=== PATIENT | female | born 1955 | race American Indian/Alaskan Native ===

== ENCOUNTER 2019-03-27 17:16 | Emergency (ER) | payer OTHER, SELFPAY ==
--- NOTE | 2019-03-27 17:17 | ED_ITS ---
HPI - Chest Pain <Stephanie Cornejo DO - Last Filed: 03/28/19 07:30> General Chief Complaint: Chest Pain Stated Complaint: lightheadness Time Seen by Provider: 03/27/19 17:21 Source: patient and EMS Mode of arrival: EMS Limitations: no limitations History of Present Illness HPI narrative: Patient is a 63-year-old female with history of hypertension presenting with burning sensation in her chest lightheadedness and hypertension. She was working at the [employer] when she felt extremely lightheaded like she might pass out however she did not. Her blood pressure was noted to be elevated at the times she did take her nightly dose of medications about 30 minutes prior to arrival. She has also been complaining of chest discomfort which she describes as a burning sensation on the left side of her chest. He says it has been off and on for about a week without provocation or palliation, however it is worse today. It is nonradiating she denies any shortness of breath. She has no abdominal pain nausea vomiting weakness numbness or tingling in her extremities. MD complaint: chest pain Duration: constant Pain location: left chest Severity: mild Quality: other (Burning) Pain radiation: none Relieving factors: nothing Exacerbating factors: nothing Related Data Allergies Allergy/AdvReac Type Severity Reaction Status Date / Time alcohol Allergy Verified 03/27/19 17:27 Review of Systems <DO Dary Shaw Last Filed: 03/28/19 07:30> Review of Systems ROS Unobtainable: All systems reviewed & are unremarkable except as noted in HPI and below Constitutional Constitutional: Denies chills, Denies fever(s), Denies lethargy and Denies weakness Eyes Eyes: Denies change in vision, Denies eye discharge, Denies irritation and Denies loss of vision ENT Ears, Nose, Mouth, and Throat: Denies change in voice, Denies neck pain and Denies sore throat Cardiovascular Cardiovascular: Reports as per HPI, Reports chest pain, Reports lightheadedness, Denies dyspnea and Denies dyspnea on exertion Respiratory Respiratory: Denies cough, Denies dyspnea, Denies dyspnea on exertion and Denies wheezing Gastrointestinal Gastrointestinal: Denies abdominal pain, Denies change in bowel habits, Denies diarrhea, Denies nausea and Denies vomiting Genitourinary Genitourinary: Denies hematuria, Denies flank pain, Denies urinary incontinence and Denies urinary urgency Musculoskeletal Musculoskeletal: Denies neck pain Integumentary/Breasts Skin/Breast: Denies pruritus, Denies erythema, Denies rash and Denies wounds Neurologic Neurologic: Denies confusion, Denies loss of vision and Denies weakness Psychiatric Psychiatric: Denies anxiety, Denies confusion, Denies depression, Denies homicidal ideation and Denies suicidal ideation Allergic/Immunologic Allergic/Immunologic: Denies wheezing Patient History <Stephanie Cornejo DO - Last Filed: 03/28/19 07:30> Medical History Hypertension (Acute) Social History Smoking Status: Never smoker Substance Use Type: does not use Exam <Stephanie Cornejo DO - Last Filed: 03/28/19 07:30> Initial Vital Signs Initial Vital Signs: Vital Signs Pulse Rate 82 03/27/19 17:18 Respiratory Rate 16 03/27/19 17:18 Blood Pressure 223/95 H 03/27/19 17:18 Pulse Oximetry 100 03/27/19 17:18 GENERAL: Well-appearing, well-nourished and in no acute distress. HEENT: Head atraumatic,EOMI, pupils reactive CARDIOVASCULAR: Regular rate and rhythm without murmurs, rubs or gallops. RESPIRATORY: Breath sounds equal bilaterally, no wheezes rales or rhonchi. ABDOMEN: Soft, nontender. Normoactive bowel sounds all 4 quadrants. No guarding or rebound. EXTREMITIES: Normal range of motion, no clubbing or edema. Neurovascularly intact NEUROLOGICAL: Alert and oriented x4.Normal gait and speech. Cranial nerves II through XII grossly intact. [employer] strength equal bilaterally SKIN: Warm, dry, no laceration, no petechiae, no rashes or lesions. <DO Dary Andino Last Filed: 03/28/19 02:34> Initial Vital Signs Initial Vital Signs: Vital Signs Pulse Rate 82 03/27/19 17:18 Respiratory Rate 16 03/27/19 17:18 Blood Pressure 223/95 H 03/27/19 17:18 Pulse Oximetry 100 03/27/19 17:18 <Ger Obando DO - Last Filed: 03/28/19 02:34> HEART Score Heart Score history: Slightly Suspicious Heart Score EKG: Normal Heart Score Age: 45-64 years old Heart Score risk factors: 1-2 risk factors Heart Score troponin: < or = to normal limit Heart Score Total: 2 Course <Stephanie Cornejo DO - Last Filed: 03/28/19 07:30> Orders Ordered: Discontinued Medications Aspirin (Aspirin Chew) 324 mg PO NOW ONE Stop: 03/27/19 17:18 Last Admin: 03/27/19 17:30 Dose: 324 mg Documented by: CISCO Sodium Chloride (Normal Saline 0.9%) 1,000 mls @ 1,000 mls/hr IV CONT KANDICE Last Infusion: 03/27/19 18:30 Dose: 0 mls/hr Documented by: Admin: 03/27/19 17:30 Dose: 1,000 mls/hr Documented by: CISCO Pantoprazole Sodium (Protonix) 40 mg IV NOW ONE Stop: 03/27/19 18:37 Last Admin: 03/27/19 18:46 Dose: 40 mg Documented by: CISCO Vital Signs Vital signs: Vital Signs - 8 hr 03/27/19 19:30 03/27/19 20:00 03/27/19 22:10 Pulse Rate 80 82 69 Respiratory Rate 15 16 16 Blood Pressure 169/66 H Blood Pressure [Right Arm] 157/67 H 171/67 H Pulse Oximetry 100 100 99 <Ger Obando DO - Last Filed: 03/28/19 02:34> Course Course Narrative: Patient received from Dr. Cornejo in sign-out. I performed independent history and physical exam. She is resting comfortably and has no symptoms. Her blood pressures in the 160s. Her repeat troponin is unremarkable. It seems reasonable that her symptoms are related to blood pressure which is now in a much more manageable range. Heart score is low, she has a nonischemic EKG and troponin x2 is normal. Though her lipase is in the 600 she has no pain and abdominal ultrasound is unremarkable. Additionally her urine shows leukocytes but the patient has no dysuria, frequency or urgency. She has no fever and no back pain. I will not treat at this point time and await cultures. She has been given return precautions and has had questions answered to her apparent satisfaction Orders Ordered: Discontinued Medications Aspirin (Aspirin Chew) 324 mg PO NOW ONE Stop: 03/27/19 17:18 Last Admin: 03/27/19 17:30 Dose: 324 mg Documented by: CISCO Sodium Chloride (Normal Saline 0.9%) 1,000 mls @ 1,000 mls/hr IV CONT KANDICE Last Infusion: 03/27/19 18:30 Dose: 0 mls/hr Documented by: Admin: 03/27/19 17:30 Dose: 1,000 mls/hr Documented by: CISCO Pantoprazole Sodium (Protonix) 40 mg IV NOW ONE Stop: 03/27/19 18:37 Last Admin: 03/27/19 18:46 Dose: 40 mg Documented by: CISCO Vital Signs Vital signs: Vital Signs - 8 hr 03/27/19 19:30 03/27/19 20:00 03/27/19 22:10 Pulse Rate 80 82 69 Respiratory Rate 15 16 16 Blood Pressure 169/66 H Blood Pressure [Right Arm] 157/67 H 171/67 H Pulse Oximetry 100 100 99 MDM - Chest Pain <Stephanie Cornejo DO - Last Filed: 03/28/19 07:30> Lab Data Attestation: I reviewed the patient's lab results. Result diagrams: 03/27/19 17:50 03/27/19 17:50 Labs: Lab Results 03/27/19 03/27/19 03/27/19 Range/Units 17:24 17:50 17:50 WBC 9.8 (4.5-11.0) X10^3/uL RBC 4.64 (4.0-5.2) X10^6/uL Hgb 13.6 (12.0-16.0) g/dL Hct 41.5 (36-46) % MCV 89.4 (80-100) fL MCH 29.4 (26-34) PG MCHC 32.9 (30-36) % RDW 14.0 (11.6-14.8) % Plt Count 383 (150-400) X10^3/uL Neut % (Auto) 63.2 (50-75) % Lymph % (Auto) 29.5 (25-40) % [place] % (Auto) 5.3 (3-14) % Eos % (Auto) 1.4 L (2-4) % Baso % (Auto) 0.6 (0-2) % Neut # (Auto) 6200 (7748-5151) /uL Lymph # (Auto) 2900 (4821-4816) /uL [place] # (Auto) 500 (0-900) /uL Eos # (Auto) 100 (0-450) /uL Baso # (Auto) 100 (0-100) /uL Sodium 142 (137-145) mmol/L Potassium 3.8 (3.4-5.1) mmol/L Chloride 105 (98-107) mmol/L Carbon Dioxide 29 (22-32) mmol/L BUN 15 (7-17) mg/dL Creatinine 0.70 (0.52-1.04) mg/dL Estimated GFR > 60.0 (>60) mL/min BUN/Creatinine Ratio 21.4 (6-22) Glucose 149 H (80-110) mg/dL Calcium 9.7 (8.4-10.2) mg/dL Total Bilirubin 0.4 (0.2-1.3) mg/dL AST 55 H (14-36) IU/L ALT 18 (<35) IU/L Alkaline Phosphatase 81 (38-126) U/L Total Creatine Kinase 65 (30-135) U/L CK-MB (CK-2) TNP CK-MB (CK-2) Rel Index TNP Troponin I < 0.012 (0.01-0.034) ng/mL Total Protein 8.6 H (6.3-8.2) g/dL Albumin 4.8 (3.5-5.0) g/dL Globulin 3.8 (1.7-4.1) g/dL Albumin/Globulin Ratio 1.3 (1.0-2.8) Lipase 638 H (23-300) U/L Urine RBC None seen (0-5/HPF) Urine WBC 5-10/hpf H (0-5/HPF) Urine Bacteria None seen (None) Ur Culture Indicated? Specimen cultured 03/27/19 Range/Units 21:10 WBC (4.5-11.0) X10^3/uL RBC (4.0-5.2) X10^6/uL Hgb (12.0-16.0) g/dL Hct (36-46) % MCV (80-100) fL MCH (26-34) PG MCHC (30-36) % RDW (11.6-14.8) % Plt Count (150-400) X10^3/uL Neut % (Auto) (50-75) % Lymph % (Auto) (25-40) % [place] % (Auto) (3-14) % Eos % (Auto) (2-4) % Baso % (Auto) (0-2) % Neut # (Auto) (5375-3032) /uL Lymph # (Auto) (0988-5388) /uL [place] # (Auto) (0-900) /uL Eos # (Auto) (0-450) /uL Baso # (Auto) (0-100) /uL Sodium (137-145) mmol/L Potassium (3.4-5.1) mmol/L Chloride (98-107) mmol/L Carbon Dioxide (22-32) mmol/L BUN (7-17) mg/dL Creatinine (0.52-1.04) mg/dL Estimated GFR (>60) mL/min BUN/Creatinine Ratio (6-22) Glucose (80-110) mg/dL Calcium (8.4-10.2) mg/dL Total Bilirubin (0.2-1.3) mg/dL AST (14-36) IU/L ALT (<35) IU/L Alkaline Phosphatase (38-126) U/L Total Creatine Kinase (30-135) U/L CK-MB (CK-2) CK-MB (CK-2) Rel Index Troponin I 0.019 (0.01-0.034) ng/mL Total Protein (6.3-8.2) g/dL Albumin (3.5-5.0) g/dL Globulin (1.7-4.1) g/dL Albumin/Globulin Ratio (1.0-2.8) Lipase (23-300) U/L Urine RBC (0-5/HPF) Urine WBC (0-5/HPF) Urine Bacteria (None) Ur Culture Indicated? Urine Dip Bedside Urine Glucose Negative Bedside Urine Bilirubin - Negative Bedside Urine Ketone - Negative Urine Specific [place] 1.010 Bedside Urine Occult Blood - Negative Bedside Urine pH 6.0 Bedside Urine Protein - Negative Bedside Urine Urobilinogen - Negative Bedside Urine Nitrite - Negative Bedside Urine Leukocytes ++ 125 Esterase Imaging Data Chest x-ray: Radiologist's impression: PROCEDURE: XR CHEST 1V INDICATIONS: chest pain TECHNIQUE: One view of the chest was acquired. COMPARISON: None. FINDINGS: Surgical changes and devices: None. Lungs and pleura: Lungs are clear. No pleural effusions or pneumothorax. Mediastinum: Mediastinal contours appear normal. Heart size is normal. Bones and chest wall: No suspicious bony lesions. Overlying soft tissues appear unremarkable. IMPRESSION: Chest without acute cardiopulmonary abnormalities. There are no imaging findings to explain patient's chest pain. Dictated by: Owen Mobley M.D. on 03/27/2019 at 18:05 Approved by: Owen Mobley M.D. on 03/27/2019 at 18:05 ECG Data Attestation: I personally reviewed and interpreted this ECG as follows: Prior ECG tracings: not available for review Interpretation: Normal sinus rhythm rate [address] changes or Q-wave noted in lead 3 only no T-wave inversions no priors to compare <Ger Obando DO - Last Filed: 03/28/19 02:34> Lab Data Labs: Lab Results 03/27/19 03/27/19 03/27/19 Range/Units 17:24 17:50 17:50 WBC 9.8 (4.5-11.0) X10^3/uL RBC 4.64 (4.0-5.2) X10^6/uL Hgb 13.6 (12.0-16.0) g/dL Hct 41.5 (36-46) % MCV 89.4 (80-100) fL MCH 29.4 (26-34) PG MCHC 32.9 (30-36) % RDW 14.0 (11.6-14.8) % Plt Count 383 (150-400) X10^3/uL Neut % (Auto) 63.2 (50-75) % Lymph % (Auto) 29.5 (25-40) % [place] % (Auto) 5.3 (3-14) % Eos % (Auto) 1.4 L (2-4) % Baso % (Auto) 0.6 (0-2) % Neut # (Auto) 6200 (9362-7916) /uL Lymph # (Auto) 2900 (6158-8756) /uL [place] # (Auto) 500 (0-900) /uL Eos # (Auto) 100 (0-450) /uL Baso # (Auto) 100 (0-100) /uL Sodium 142 (137-145) mmol/L Potassium 3.8 (3.4-5.1) mmol/L Chloride 105 (98-107) mmol/L Carbon Dioxide 29 (22-32) mmol/L BUN 15 (7-17) mg/dL Creatinine 0.70 (0.52-1.04) mg/dL Estimated GFR > 60.0 (>60) mL/min BUN/Creatinine Ratio 21.4 (6-22) Glucose 149 H (80-110) mg/dL Calcium 9.7 (8.4-10.2) mg/dL Total Bilirubin 0.4 (0.2-1.3) mg/dL AST 55 H (14-36) IU/L ALT 18 (<35) IU/L Alkaline Phosphatase 81 (38-126) U/L Total Creatine Kinase 65 (30-135) U/L CK-MB (CK-2) TNP CK-MB (CK-2) Rel Index TNP Troponin I < 0.012 (0.01-0.034) ng/mL Total Protein 8.6 H (6.3-8.2) g/dL Albumin 4.8 (3.5-5.0) g/dL Globulin 3.8 (1.7-4.1) g/dL Albumin/Globulin Ratio 1.3 (1.0-2.8) Lipase 638 H (23-300) U/L Urine RBC None seen (0-5/HPF) Urine WBC 5-10/hpf H (0-5/HPF) Urine Bacteria None seen (None) Ur Culture Indicated? Specimen cultured 03/27/19 Range/Units 21:10 WBC (4.5-11.0) X10^3/uL RBC (4.0-5.2) X10^6/uL Hgb (12.0-16.0) g/dL Hct (36-46) % MCV (80-100) fL MCH (26-34) PG MCHC (30-36) % RDW (11.6-14.8) % Plt Count (150-400) X10^3/uL Neut % (Auto) (50-75) % Lymph % (Auto) (25-40) % [place] % (Auto) (3-14) % Eos % (Auto) (2-4) % Baso % (Auto) (0-2) % Neut # (Auto) (0919-0193) /uL Lymph # (Auto) (5320-7167) /uL [place] # (Auto) (0-900) /uL Eos # (Auto) (0-450) /uL Baso # (Auto) (0-100) /uL Sodium (137-145) mmol/L Potassium (3.4-5.1) mmol/L Chloride (98-107) mmol/L Carbon Dioxide (22-32) mmol/L BUN (7-17) mg/dL Creatinine (0.52-1.04) mg/dL Estimated GFR (>60) mL/min BUN/Creatinine Ratio (6-22) Glucose (80-110) mg/dL Calcium (8.4-10.2) mg/dL Total Bilirubin (0.2-1.3) mg/dL AST (14-36) IU/L ALT (<35) IU/L Alkaline Phosphatase (38-126) U/L Total Creatine Kinase (30-135) U/L CK-MB (CK-2) CK-MB (CK-2) Rel Index Troponin I 0.019 (0.01-0.034) ng/mL Total Protein (6.3-8.2) g/dL Albumin (3.5-5.0) g/dL Globulin (1.7-4.1) g/dL Albumin/Globulin Ratio (1.0-2.8) Lipase (23-300) U/L Urine RBC (0-5/HPF) Urine WBC (0-5/HPF) Urine Bacteria (None) Ur Culture Indicated? Urine Dip Bedside Urine Glucose Negative Bedside Urine Bilirubin - Negative Bedside Urine Ketone - Negative Urine Specific [place] 1.010 Bedside Urine Occult Blood - Negative Bedside Urine pH 6.0 Bedside Urine Protein - Negative Bedside Urine Urobilinogen - Negative Bedside Urine Nitrite - Negative Bedside Urine Leukocytes ++ 125 Esterase Discharge Plan Departure Patient Disposition: Home Clinical Impression: Atypical chest pain, Elevated lipase Hypertension Qualifiers: Hypertension type: essential hypertension Qualified Code(s): I10 - Essential (primary) hypertension Discharge Date/Time: 03/27/19 22:12 Instructions: Essential Hypertension, DI for Atypical Chest Pain Activity Restrictions/Additional Instructions: *You have been diagnosed with [hypertension, elevated lipase.] *What to do: *Take medications as directed *Follow up with your primary care provider in 2-3 days, call for an appointment. Let them know you were seen in the Emergency Department and that we ask that you be seen in follow up *Return to ER if you should have any new, worsening or concerning symptoms, such as [return of chest pain, vomiting, fever or shaking chills, urinary symptoms or other bothersome symptoms Stand Alone Forms: Work Release Note
[2019-03-27 17:18] VITALS: BP 223/95; PULSE 82; RESP 16; O2SAT 100; BMI 22.6
[2019-03-27] MEDS: ASPIRIN 81 MG CHEW TAB 324 MG PO (17:30)
[2019-03-27] MEDS: SODIUM CHLORIDE 0.9% 1,000 ML 1000 ML IV (17:30)
[2019-03-27 17:52] LABS: Bacteria Urine None Seen; RBC Urine None Seen (0-5/HPF)
[2019-03-27 18:02] LABS: Add Manual Diff / Slide Review NO; Basophils Absolute Auto 100 /uL (0-100); Basophils Percent Auto 0.6 % (0-2); Eosinophils Absolute Auto 100 /uL (0-450); Eosinophils Percent Auto 1.4 % (2-4); Hematocrit 41.5 % (36-46); Hemoglobin 13.6 g/dL (12.0-16.0); Lymphocytes Absolute Auto 2900 /uL (1100-4500); Lymphocytes Percent Auto 29.5 % (25-40); Mean Corpuscular HGB Conc 32.9 % (30-36); Mean Corpuscular Hemoglobin 29.4 PG (26-34); Mean Corpuscular Volume 89.4 fL (80-100); Monocytes Absolute Auto 500 /uL (0-900); Monocytes Percent Auto 5.3 % (3-14); Neutrophils Absolute Auto 6200 /uL (1500-7000); Neutrophils Percent Auto 63.2 % (50-75); Platelet Count 383 X10^3/uL (150-400); Red Blood Cell Count 4.64 X10^6/uL (4.0-5.2); White Blood Cell Count 9.8 X10^3/uL (4.5-11.0)
[2019-03-27 18:03] LABS: Culture Indicated Urine Specimen Cultured; WBC Urine 5-10/HPF (0-5/HPF)
[2019-03-27 18:05] VITALS: BP 194/61; PULSE 76; RESP 16; TEMP 36.8; O2SAT 100
[2019-03-27 18:13] LABS: Alanine Aminotransferase 18 IU/L (<35); Albumin 4.8 g/dL (3.5-5.0); Albumin Globulin Ratio 1.3 (1.0-2.8); Alkaline Phosphatase 81 U/L (38-126); Aspartate Aminotransferase 55 IU/L (14-36); BUN Creatinine Ratio 21.4 (6-22); Bilirubin Total 0.4 mg/dL (0.2-1.3); Blood Urea Nitrogen 15 mg/dL (7-17); Calcium 9.7 mg/dL (8.4-10.2); Carbon Dioxide 29 mmol/L (22-32); Chloride 105 mmol/L (98-107); Creatine Kinase 65 U/L (30-135); Estimated Glomerular Filt Rate > 60.0 mL/min (>60); Globulin 3.8 g/dL (1.7-4.1); Glucose 149 mg/dL (80-110); Lipase 638 U/L (23-300); Potassium 3.8 mmol/L (3.4-5.1); Sodium 142 mmol/L (137-145); Total Protein 8.6 g/dL (6.3-8.2)
[2019-03-27 18:19] LABS: HEMOLYSIS 54 (0-50)
[2019-03-27 18:24] LABS: Troponin I < 0.012 ng/mL (0.01-0.034)
[2019-03-27 18:28] VITALS: BP 197/88; PULSE 78; RESP 14; O2SAT 100
[2019-03-27] MEDS: PANTOPRAZOLE 40 MG VIAL IV (18:46)
--- NOTE | 2019-03-27 19:08 | PC.NURSE ---
Pt reports leg is shaky. Muscle spasm or tremors visible right leg [id number] aprox 5 seconds.
[2019-03-27 19:30] VITALS: BP 157/67; PULSE 80; RESP 15; O2SAT 100
--- NOTE | 2019-03-27 19:54 | DI.US.S_ITS ---
PROCEDURE: US ABDOMEN LIMITED INDICATIONS: EPIGASTRIC PAIN; ELEVATED LIPASE TECHNIQUE: Real-time scanning was performed of the abdominal and retroperitoneal organs, with image documentation. COMPARISON: None. FINDINGS: Liver: Liver is normal in size and homogeneous in echotexture. Incidental note of a 2.2 x 1.8 x 1.9 cm posterior right hepatic lobe echogenic lesion with increased posterior through transmission. Findings are compatible with a hemangioma. Gallbladder: The gallbladder contains a few adherent echogenic foci most consistent with gallbladder polyps. The largest measures approximately 4 mm in size along the posterior wall. No gallbladder wall thickening. No gallstones or pericholecystic fluid. Biliary ducts: Intrahepatic bile ducts are non-dilated. Extrahepatic bile duct caliber measures 5 mm. Normal is 6-7 mm or less in diameter, or 10 mm or less post-cholecystectomy. Pancreas: The pancreas was not well-visualized secondary to adjacent bowel gas. Miscellaneous: No free abdominal fluid. IMPRESSION: 1. The pancreas was not well visualized secondary to adjacent bowel gas. 2. Incidental note of a 2.2 cm posterior right hepatic lobe echogenic mass with imaging characteristics of a hemangioma. Consider dedicated outpatient CT or MRI of the abdomen to further characterize. The liver is otherwise normal in sonographic appearance. 3. Several gallbladder polyps measuring up to 4 mm in size. No further imaging followup required. Dictated by: Owen Mobley M.D. on 03/27/2019 at 21:10 Approved by: Owen Mobley M.D. on 03/27/2019 at 21:14
[2019-03-27 20:00] VITALS: BP 171/67; PULSE 82; RESP 16; O2SAT 100
[2019-03-27 21:41] LABS: Troponin I 0.019 ng/mL (0.01-0.034)
[2019-03-27 22:10] VITALS: BP 169/66; PULSE 69; RESP 16; O2SAT 99
== END 2019-03-27 22:12 | disposition home or self-care (01) ==
PROVIDERS: Emergency Medicine; Emergency Provider Emergency Medicine
DX: R07.89 Other chest pain (principal); R74.8 Abnormal levels of other serum enzymes; I10 Essential (primary) hypertension
CPT/HCPCS: 36415; 71045; 76705; 80053; 81003; 81015; 82550; 83690; 84484; 85025; 87086; 93005; 96361; 96374; 99283; 99285; C9113